=== PATIENT | female | born 1960 | race American Indian/Alaskan Native ===

== ENCOUNTER 2019-06-06 18:12 | Emergency (ER) | payer MEDICAID ==
--- NOTE | 2019-06-06 18:58 | Event Note ---
ED Screening Note Date of service: 06/06/19 Time: 18:53 ED Screening Note: This is a 58 y.o. F. that presents to the ER with incontinence and rash to buttock. Patient daughter states patient reports falling and altered mental status. Current smoker. PMH CVA with left side weakness This initial assessment/diagnostic orders/clinical plan/treatment(s) is/are subject to change based on patients health status, clinical progression and re- assessment by fellow clinical providers in the ED. Further treatment and workup at subsequent clinical providers discretion. Patient/guardian urged not to elope from the ED as their condition may be serious if not clinically assessed and managed. Initial orders include: Labs and CT of head
--- NOTE | 2019-06-06 20:04 | Cat Scan Report ---
CT BRAIN: 06/06/2019 INDICATION / CLINICAL INFORMATION: AMS r/o stroke. COMPARISON: 12/16/2012 FINDINGS: BRAIN/INTRACRANIAL STRUCTURES: Unenhanced CT images of the brain demonstrate no evidence of acute int racranial abnormality. There is been significant progression in the degree of pronounced diffuse cerebral atrophy and extens corrie chronic white matter hypoattenuation when compared to the prior exam from 12/16/2012. There is also been interval development of subcortical ischemic changes in the right frontal lobe. There is no evidence of hemorrhage or mass at this time. There are no abnormal extra-axial fluid dimitry ections. EXTRACRANIAL STRUCTURES: Unremarkable. IMPRESSION: No acute abnormality. Pronounced diffuse cerebral atrophy, much more extensive than on the prior exa m from 2012. Chronic white matter small vessel ischemic change. Chronic right frontal subcortical isc hemic change. All CT scans at this location are performed using dose reduction to ALARA by means of automated expos ure control. Signer Name: Jose E Meyer MD Signed: 06/06/2019 8:00 PM Workstation Name: [id number]
[2019-06-06 20:08] LABS: INR 1.11 (0.87-1.13); Partial Thromboplastin Time 21.8 Sec. (24.2-36.6)
[2019-06-06 20:16] LABS: Hematocrit 43.3 % (30.3-42.9); Hemoglobin 15.1 gm/dl (10.1-14.3); Mean Corpuscular HGB Conc 35 % (30-34); Mean Corpuscular Volume 85 fl (79-97); Red Blood Count 5.07 M/mm3 (3.65-5.03); Red Cell Distribution Width 13.5 % (13.2-15.2)
[2019-06-06 20:17] LABS: Lymphocytes % (Auto) 39.3 % (13.4-35.0); Platelet Count 84 K/mm3 (140-440)
[2019-06-06 20:18] LABS: Basophils % (Auto) 0.7 % (0.0-1.8); Eosinophils # (Auto) 0.1 K/mm3 (0.0-0.4); Eosinophils % (Auto) 1.1 % (0.0-4.3); Lymphocytes # (Auto) 2.7 K/mm3 (1.2-5.4); Monocytes # (Auto) 0.4 K/mm3 (0.0-0.8)
[2019-06-06] MEDS ORDERED: HumuLIN R IV ONE ×3 (20:24→22:16)
[2019-06-06] MEDS ORDERED: NACL 0.9% 1000 ML 1,000 ML IV ONE (20:24)
--- NOTE | 2019-06-06 20:28 | Emergency Department Report ---
ED General Adult HPI - General Chief complaint: Urogenital-Female Stated complaint: RASH/NO CONTROL OF UNRINATING Time Seen by Provider: 06/06/19 18:53 Source: patient Mode of arrival: Ambulatory Limitations: No Limitations - History of Present Illness Initial comments: Patient is 58 years old female with history of CVA, hypertension and diabetes. Recent proximal to the emergency room by her daughter stating that her mother is having difficulty controlling her urination. She also found that she has a rash on her buttock. The daughter stated that her aunt is taking care of her mother. Patient is alert oriented and able to questions. Patient denied any chest pain, shortness of breath, abdominal pain, nausea or vomiting. Severity scale (0 -10): 0 - Related Data Home Medications Medication Instructions Recorded Confirmed Last Taken amLODIPine [Norvasc] 5 mg PO DAILY 08/05/13 08/05/13 08/04/13 5 cloNIDine [Catapres] 0.1 mg PO BID 08/05/13 08/05/13 08/04/13 0.1 hydrALAZINE [Apresoline] 50 mg PO Q8H 08/05/13 08/05/13 08/04/13 50 Allergies Allergy/AdvReac Type Severity Reaction Status Date / Time No Known Allergies Allergy Verified 08/05/13 00:14 ED Review of Systems ROS: Stated complaint: RASH/NO CONTROL OF UNRINATING Other details as noted in HPI Comment: All other systems reviewed and negative Constitutional: denies: chills, fever Respiratory: denies: cough, shortness of breath, SOB with exertion Gastrointestinal: denies: abdominal pain, nausea, vomiting Musculoskeletal: denies: back pain ED Past Medical Hx - Past Medical History Hx Hypertension: Yes Hx CVA: Yes (2013) Hx Diabetes: Yes - Surgical History Past Surgical History?: No - Social History Smoking Status: Current Every Day Smoker Substance Use Type: None - Medications Home Medications: Home Medications Medication Instructions Recorded Confirmed Last Taken Type amLODIPine [Norvasc] 5 mg PO DAILY 08/05/13 08/05/13 08/04/13 History 5 cloNIDine [Catapres] 0.1 mg PO BID 08/05/13 08/05/13 08/04/13 History 0.1 hydrALAZINE [Apresoline] 50 mg PO Q8H 08/05/13 08/05/13 08/04/13 History 50 ED Physical Exam - General Limitations: No Limitations General appearance: alert, in no apparent distress - Head Head exam: Present: atraumatic, normocephalic, normal inspection - Eye Eye exam: Present: normal appearance - ENT ENT exam: Present: normal exam, normal orophraynx, mucous membranes moist - Neck Neck exam: Present: normal inspection, full ROM. Absent: tenderness, meningismus, lymphadenopathy, thyromegaly - Respiratory Respiratory exam: Present: normal lung sounds bilaterally - Cardiovascular Cardiovascular Exam: Present: regular rate, normal rhythm, normal heart sounds - GI/Abdominal GI/Abdominal exam: Present: soft, normal bowel sounds. Absent: distended, tenderness, guarding, rebound, rigid, organomegaly, mass, bruit, pulsatile mass, hernia - External exam: Present: other (diffuse rash consistent with candidiasis.) - Extremities Exam Extremities exam: Present: normal inspection, full ROM - Back Exam Back exam: Present: normal inspection - Neurological Exam Neurological exam: Present: alert, oriented X3, CN II-XII intact - Skin Skin exam: Present: warm, intact, rash ED Course Vital Signs 06/06/19 06/06/19 06/06/19 18:16 18:53 20:12 Temperature 98.0 F 98 F 98 F Pulse Rate 89 89 73 Respiratory 16 20 17 Rate Blood Pressure 121/82 Blood Pressure 121/82 153/85 [Right] O2 Sat by Pulse 96 96 100 Oximetry 06/06/19 06/06/19 22:00 23:00 Temperature Pulse Rate 72 80 Respiratory 13 16 Rate Blood Pressure 153/85 147/87 Blood Pressure [Right] O2 Sat by Pulse 99 99 Oximetry ED Medical Decision Making - Lab Data Result diagrams: 06/06/19 19:15 06/06/19 20:36 - Medical Decision Making Patient is 58 years old female with history of CVA, hypertension and diabetes. Recent proximal to the emergency room by her daughter stating that her mother is having difficulty controlling her urination. She also found that she has a rash on her buttock. The daughter stated that her aunt is taking care of her mother. Patient is alert oriented and able to questions. Patient denied any chest pain, shortness of breath, abdominal pain, nausea or vomiting. Patient received normal saline and insulin 8 units. Blood sugar went down for 500-200. Patient stated that she is feeling much better. Patient has R son and 2 daughters in the rooms and stated that they're planning to take home with them. They stated that they have her medication at home and they want to make sure that she is taking it. I prescribed Diflucan for the yeast infection and advised patient to follow up with primary care physician in the next 2-3 days and to return to the ER if symptoms are not improved. Critical care attestation.: If time is entered above; I have spent that time in minutes in the direct care of this critically ill patient, excluding procedure time. ED Disposition Clinical Impression: Hyperglycemia, Arlin infection Disposition: DC-01 TO HOME OR SELFCARE Is pt being admited?: No Condition: Stable Instructions: Diabetic Hyperglycemia (ED), Arlin Albicans Antigen (Intradermal) Referrals: [facility] [Provider Group] - 3-5 Days
[2019-06-06 20:48] LABS: Bacteria,Urine 1+ /HPF (Negative); Bilirubin,Urine NEG (Negative); Blood,Urine SM (Negative); Color,Urine Straw (Yellow); Mucus,Urine FEW /HPF; Protein,Urine <15 mg/dL mg/dL (Negative); Urobilinogen,Urine < 2.0 mg/dL (<2.0)
[2019-06-06 21:00] LABS: Albumin 3.4 g/dL (3.9-5); BUN/Creatinine Ratio 13; Blood Urea Nitrogen 10 mg/dL (7-17); Calcium 8.7 mg/dL (8.4-10.2); Hemolysis Index 91
[2019-06-06 21:46] LABS: Alanine Aminotransferase 22 units/L (7-56)
[2019-06-06 23:12] VITALS: BP 147/87
== END 2019-06-06 23:57 | disposition home or self-care (01) ==
LOC: ED 18:12
DX: E11.65 Type 2 diabetes mellitus with hyperglycemia (principal); B37.9 Candidiasis, unspecified; I10 Essential (primary) hypertension; F17.200 Nicotine dependence, unspecified, uncomplicated; Z86.73 Personal history of transient ischemic attack (TIA), and cerebral infarction without residual deficits; Z79.899 Other long term (current) drug therapy
CPT/HCPCS: 36415; 70450; 80053; 81001; 82962; 84484; 85025; 85610; 85670; 85730; 86850; 86900; 86901; 93005; 93010; 96361; 96374; 96376; 99285; J7030; J1815